=== PATIENT | female | born 1975 | race Caucasian/White ===

== ENCOUNTER 2017-05-14 17:07 | Emergency (ER) | payer MEDICAID ==
[~2017-05-14] VITALS: Ht 160 cm; Wt 112.5 kg
[2017-05-14 17:31] VITALS: Ht 160 cm; Wt 112.5 kg
[2017-05-14 19:37] LABS: microscopic required? YES; urine erythrocyte 1+ (NEGATIVE)
[2017-05-14 19:45] LABS: BASOPHIL % 0.5 % (0-2); PLATELET COUNT 380 x10^3mcL (130-400)
[2017-05-14 19:47] LABS: CALCIUM 8.5 mg/dL (8.5-10.1); CHLORIDE SERUM 102 mmol/L (98-107); CREATININE SERUM 0.7 mg/dL (0.6-1.0); GFR1 > 60 mL/min; GLUCOSE SERUM 95 mg/dL (74-106); POTASSIUM SERUM 3.6 mmol/L (3.5-5.1); SODIUM SERUM 139 mmol/L (136-145)
[2017-05-14 19:48] LABS: RED CELL DISTRIBUTION WIDTH 16.1 % (11.5-14.5)
[2017-05-14 19:51] LABS: ALBUMIN 3.5 g/dL (3.4-5.0); ALKALINE PHOSPHATASE 56 U/L (46-116); ALT/SGPT 6 U/L (14-59); AMYLASE 54 U/L (25-115); AST/SGOT 14 U/L (15-37); BILIRUBIN TOTAL 0.2 mg/dL (0.20-1.00); CHOLESTEROL 199 mg/dL (<200); HDL CHOLESTEROL 60 mg/dL (40-60); LIPASE 88 IU/L (73-393); TOTAL PROTEIN, SERUM 7.7 g/dL (6.4-8.2)
[2017-05-14 22:58] VITALS: BP 132/65
== END 2017-05-14 22:30 | disposition home or self-care (01) ==
LOC: ED 17:07
PROVIDERS: Emergency Medicine
DX: R10.13 Epigastric pain (principal); R11.10 Vomiting, unspecified; R19.7 Diarrhea, unspecified
CPT/HCPCS: 83880; J1885; J3490; J7030; Q0092